=== PATIENT | male | born 1975 | race Caucasian/White ===

== ENCOUNTER 2024-03-05 06:16 | Day surgery (SDC) | payer MEDICARE ==
[~2024-03-05 06:16] MED LIST: Sodium Chloride 0.9% 10 ML Syringe FLUSH PRN
[2024-03-05] MEDS ORDERED: Midazolam 1 MG/ML 2 ML SDV IV ONE (06:17)
[2024-03-05] MEDS ORDERED: fentaNYL 100 MCG/2 ML SDV IV ONE (06:17)
[2024-03-05] MEDS ORDERED: Propofol 200 MG/20 ML SDV IV ONE (06:17)
[2024-03-05] MEDS: Lactated Ringers 1,000 ML IV SCH (10:21)
== END 2024-03-05 09:09 | disposition home or self-care (01) ==
LOC: FB.SDS 06:16
PROVIDERS: ATTEND Surgery
DX: K57.31 Diverticulosis of large intestine without perforation or abscess with bleeding (principal); E66.9 Obesity, unspecified; Z68.41 Body mass index [BMI] 40.0-44.9, adult
CPT/HCPCS: 00811; J2250; J2704; J3010; J7120